=== PATIENT | male | born 1940 | race Asian ===

== ENCOUNTER 2023-02-14 09:30 | Outpatient (RCR) | payer OTHER, SELFPAY ==
[2023-02-14] MEDS: NSS 500 IV (10:05)
[2023-02-14 10:21] VITALS: BP 119/63
== END 2023-03-09 23:59 | disposition home or self-care (01) ==
LOC: OID 09:30
PROVIDERS: ATTENDING PHYSICIAN Nurse Practitioner Adult Health; FAMILY PHYSICIAN Internal Medicine
DX: I35.0 Nonrheumatic aortic (valve) stenosis (principal); I25.10 Atherosclerotic heart disease of native coronary artery without angina pectoris; Z92.89 Personal history of other medical treatment
CPT/HCPCS: 74174; 96360; 96361; Q9967

== ENCOUNTER 2023-03-17 07:19 | Inpatient (IN) | payer OTHER, SELFPAY ==
--- NOTE | 2023-03-09 07:25 | HPS.HSE ---
Addendum entered and electronically signed by EDEL Alvarado 03/14/23 11:30:
Labs reviewed with Dr. Chavez. Leydaeint on Eliquis for history of a-fib. Will resume Eliquis following TAVR at renal dose.
Original Note:
Family Physician
-
Family Physician: Jennifer Ingram
Cardiology: Drew Chicas
Chief Complaint
-
6 month history of worsening shortness of breath/dyspnea on exertion
History of Present Illness
Mr. Mariana Bourne is a very pleasant 82-year-old gentleman who only speaks Gujarati. At initial consult with CT surgery, the patient reported approximately 6-month history of worsening shortness of breath/dyspnea on exertion. He stated that this
occurs with even minimal activity at present. He had not had any symptoms occurring at rest. He also reported weekly episodes of chest pain that last approximately 30 to 45 minutes and resolved spontaneously that had been occurring over the previous
3 to 4 months. He also had significant orthopedic complaints including back pain and bilateral elbow/shoulder pain and bilateral knee pain that limit his physical activity.He has severe aortic stenosis with a mean gradient of 41 mmHg along with mild
to moderate aortic valve regurgitation. His aortic valve leaflets are calcified and restricted. His LVEF is preserved at 60% and his wall motion appears normal although. His right ventricular systolic function is also normal. He also has mild mitral
regurgitation. He is status post prior PCI and stenting to his right coronary in [place] in 2012. His recent cardiac catheterization he demonstrated multi vessel CAD: Significant restenosis of the mid RCA stent. Significant mid LAD lesion.�Moderate
ostial D1 lesion.�Severe proximal OM2 lesion. Patient was reviewed by the heart team in the shared decision making meeting. He was felt to be a poor surgical candidate so the recommendation was for PCI and TAVR. On 01/20/2023 he underwent PCI with
Dr. Chicas. Since his PCI he offers no more complaints of chest pain, only HALLMAN. Also of note, his TAVR evaluation was delayed given renal insufficiency with fluctuating GFRs requiring IV hydration and staged CT scan. Completed CT scan was reviewed
by the heart team and the decision was made to place a 23mm S3 valve via left transfemoral access.
Medical History
Past Medical History
Past Medical History: Reports CAD (h/o [place], PCI 01/27/2023), CHF (Chronic Diastolic Heart Failure), GERD, HTN, Hypercholesterolemia, Valvular Disease (Aortic stenosis, MR, TR ) and Other (Pulmonary HTN)
Additional Past Medical History:
DJD
STILL[place]- no hearing aides
Past Surgical History: Reports Cardiac (Cath PCI� 01/20/2023: Mid RCA in-stent restenosis was treated with angioplasty and subsequent stenting with a 2.5 x 33 mm Xience [place] stent.� Post dilations were performed using a 2.75 mm NC balloon.� The
OM 2 lesion was stented using a 2.5 x 12 mm Xience [place] stent and postdilated using a)
Additional Past Surgical History:
Prostatectomy
Cataract surgery with lens implants
Cardiac stents in [place] 2012
Social History
Tobacco: Former Smoker
Alcohol: None
Drug: None
Personal:
Living: With Family
Employment: Retired
Family History
Family History: CAD (Father- at 60, Brother-CAD) and Diabetes (brother, sons)
Allergies / Home Medications
Allergies reflects when Allergies were last updated in [facility].
Home Medications with original date entered in [facility]
Allergy/Medication List:
Allergies:
NKDA
Medications:
Albuterol Sulfate 108 (90 Base) MCG/ACT Aerosol Powder Breath Activated 2 puff as needed Inhalation every 4 hrs.�������
Amlodipine Besylate 5 MG Tablet 1 tablet Orally Once a day.�������
Aspirin 81 81 MG Tablet Delayed Release 1 tablet Orally Once a Day.�������
Atorvastatin Calcium 10 MG Tablet take 1 tablet by oral route every day Oral.�������
Clopidogrel Bisulfate 75 MG Tablet 1 tablet Orally Once a Day.�������
Eliquis(Apixaban) 5 MG Tablet 1 tablet Orally Twice a day.�������
Furosemide 20 MG Tablet 1 tablet Orally Once a day.�������
Metoprolol Succinate ER 25 MG Tablet take 1 tablet by oral route every day Oral.�������
Nitroglycerin 0.4 MG Tablet Sublingual as directed Sublingual PRN.�������
Pantoprazole Sodium 40 MG Tablet Delayed Release 1 tablet Orally Once a day.
Review of Systems
-
Unable to obtain full review of systems at this time due to: Language Barrier
History Source: Family (son)
Constitutional: Reports No Symptoms and Fever
EENT: Reports No Symptoms
Respiratory: Reports No Symptoms
Cardiac: Reports Other (Dyspnea on Exertion)
Abdomen/GI: Reports No Symptoms
: Reports No Symptoms
Musculoskeletal: Reports No Symptoms
Skin: Reports No Symptoms
Neurological: Reports No Symptoms
Endocrine: Reports No Symptoms
Hematologic/Lymphatic: Reports Bleeding (occasional epistaxis)
Psych: Reports No Symptoms
Physical Exam
Physical Exam
General: No Apparent Distress and Comfortable
HEENT: NormoCephalic and Moist mucous membranes
Respiratory: Clear and Non Labored Respirations
Cardiac: Irregular Rhythm and Murmur (III/)
Breast: Deferred by me
GI: Soft, Non Tender, Non Distended and Normal Bowel Sounds
Rectal: Deferred by Provider
Genito-urinary: Deferred by me
Musculoskeletal: No Edema
Skin: Warm and Dry
Neuro: AO x 3 (per son, speaks Zandrati)
Psych: Calm
Data Reviewed
-
Diagnostic Radiology: Report Reviewed by me (Emphysematous changes and probable lingular subsegmental atelectasis. Moderate cardiomegaly.)
Medical Tests (Nuc Med, Echo, EKG etc): Report Reviewed by me (a-fib, rate 73)
Lab Data: Discussed with Physician (H/H: 10.0/31.5. Only one previous CBC found from [facility] on 03/01 and Hgb was 11. Dr. Chavez aware. BUN/CREAT: 33/2.1, GFR: 30.66. This is not very different from patient baseline. Creat on 03/[address] [facility] [address] Chavez aware-will proceed with TAVR and monitor closely in hospital.)
Impression/Plan
-
IMPRESSION: 1. Severe symptomatic aortic stenosis with known CAD recently treated with coronary stenting by Dr. Chicas.
2.Altered kidney function. Unclear if chronic or acute given relatively recent involvement with patient.
3. Anemia- Hgb 10.0. Only one previous CBC found and HGB was 11.0 on 03/01/2023. No evidence of acute bleeding.
PLAN:
1. Severe Aortic Stenosis
-Plan TF-TAVR with 23mm S3 valve. Risks of PPM, bleeding and stroke reviewed with son. Allowed for and answered questions.
-Arrive 03/17/2023 at 0730 to [facility]. Aware they will receive a call on 03/16 to confirm arrival time and review instructions.
-Hold Eliquis 5mg BID after evening dose on 03/13. Take Aspirin 324mg on 03/14, Aspirin 81mg on 03/15, 03/16 and 03/17.
-Continue Plavix 75mg daily. Do not stop prior to procedure.
-hold other daily medications on , 03/17.
2. Altered Kidney function
- trend BUN/Creat/GFR
- hold lasix on 03/16 and 03/17
- limit contrast for procedure if possible
- may consider nephrology consult
3. Anemia
-trend CBC
-follow up with primary care physician for complete anemia work up following TAVR
[2023-03-09 08:40] VITALS: BMI 24.0
[2023-03-09 09:36] LABS: % Basophils 0.8 % (0-2); % Eosinophils 2.2 % (0-6); % Immature Granulocytes 0.3 % (0-0.5); % Lymphocytes 19.7 % (20.5-51.1); % Monocytes 10.4 % (1.7-9.3); % Neutrophils 66.6 % (42.2-75.2); Absolute Basophils 0.1 10^3/uL (0-0.2); Absolute Eosinophils 0.1 10^3/uL (0-0.7); Absolute Lymphocytes 1.3 10^3/uL (1.2-3.4); Absolute Monocytes 0.7 10^3/uL (0.1-0.6); Absolute Neutrophils 4.3 10^3/uL (1.4-6.5); Hematocrit 31.5 % (39.0-52.0); Mean Corp Hgb Conc. 31.7 g/dL (33.0-37.0); Mean Corpuscular Hgb 23.6 pg (27.0-31.0); Mean Corpuscular Volume 74.3 fL (80.0-94.0); Mean Platelet Volume 10.5 fL (7.4-10.4); Nucleated Red Blood Cells % 0 % (-); Platelet Count 204 10^3/uL (130-400); Red Blood Cell Count 4.24 10^6/uL (4.70-6.10); Red Cell Dist. Width 15.5 % (11.5-14.5); White Blood Cell Count 6.5 10^3/uL (4.8-10.8)
[2023-03-09 09:39] LABS: INR 1.36; PT 16.9 Sec (11.4-14.6)
[2023-03-09 09:40] LABS: APTT 40.3 Sec (23.4-35.0)
[2023-03-09 09:53] LABS: NT-proBNP 3680 pg/ml
--- NOTE | 2023-03-09 10:54 | CM ---
CM met w/ patient, son Emory during PATs for planned TAVR, 03/17.
Son provided translation as patient speaks Gujarti.
Pt. resides w/ spouse, son and dtr. in law in a private 2 story home. There are 1 LU the home. Patient is indep. w/ use of a SPC or RW.
Patient has Rx plan and uses [id number].
Reviewed pre and post op routines.
Soap, shower instructions and TAVR booklet provided and reviewed.
Discussed post op restrictions to include lifting, driving restrictions.
Reviewed post op appointment timeframe, Cardiac Rehab and visit from CT Transitional Care RN; patient agreeable to this.
Plan is for TAVR on 03/17.
Anticipated DC plan is for home w/ CT Transitional Care RN.
Will follow.
[2023-03-09 11:28] LABS: ALT (SGPT) 16 U/L (0-50); AST (SGOT) 19 U/L (17-59); Albumin 4.6 g/dl (3.5-5.0); Alkaline Phosphatase 103 U/L (38-126); Blood Urea Nitrogen 33 mg/dl (9-20); Calcium 9.5 mg/dl (8.4-10.2); Carbon Dioxide 25 mmol/L (22-30); Chloride 104 mmol/L (98-107); Direct Bilirubin 0.6 mg/dl (0.0-0.4); Estimated Creatinine Clearance 21 ml/min; Glucose 85 mg/dl (70-99); Potassium 4.8 mmol/L (3.5-5.1); Sodium 138 mmol/L (135-145); Total Bilirubin 0.8 mg/dl (0.2-1.3); Total Protein 7.9 g/dl (6.3-8.2); eGFR 30.66
[2023-03-17] VITALS (21 sets, daily range): BP systolic 96–135; BP diastolic 51–69; BMI 24.3
--- NOTE | 2023-03-17 07:58 | CM ---
Reviewed chart. Mrs. Bourne is in the operating room today.Prior to admission she resides with her spouse, son and [id number] in a two story home with one step to enter. Prior to admission she was independent with adls and uses a rolling walker
or single point cane for ambulation. She has a rolling walker and single point cane at home. She has a prescription plan and uses [facility]. Medical work-up in progress. The discharge plan is to return home with her spouse,son and
[id number] with a home visit by the Cardiothoracic Transitional Care Nurse when medically stable.
--- NOTE | 2023-03-17 08:55 | W.CVOR.SURPR ---
CVOR Surgeon Immed Pre Op
-
I have examined this patient prior to performance of the scheduled procedure.
The patient's condition is unchanged from the time of the dictated/written History and
Physical and the patient is able to undergo the scheduled procedure.
I obtained consent w/ the aid of an chick sexer. We reviewed the procedure and the associated risks (including, but not limited to, , stroke, TX, PPM requirement, PNA, LUIS FERNANDO/F, infection, and bleeding/vascular injury). Pt. is agreeable to
proceed. Pt's son was present during our discussions. The patient would request surgical rescue if necessary and deemed appropriate.
--- NOTE | 2023-03-17 09:04 | CM ---
Reviewed chart. Mr. Bourne is in the operating room today. Prior to admission he resides with his spouse, son and daughter -in-law in a two story home with one step to enter. Prior to admission he was independent with adls and uses a rolling walker
or single point cane to ambulate. He has a rolling walker and single point cane at home. He has a prescription plan and uses [facility]. Medical work-up in progress. The discharge plan is to return home with his spouse, son and
[id number] with a home visit by the Cardiothoracic Transitional Care Nurse when medically stable.
[2023-03-17] MEDS: STERILE WATER FOR INJECTION 16 ML IV ×2 (09:30→17:25)
[2023-03-17] MEDS: ZINACEF 1500 MG IV (09:30)
[2023-03-17 10:18] LABS: ACT-LR - POC 380 Seconds (116-155)
--- NOTE | 2023-03-17 10:25 | W.IMMPOSTOP ---
Surgical Immed Post Op Note
-
Dictated: [id number]
STRUCTURAL HEART PROCEDURE NOTE: TAVR
Preoperative Dx:
Severe aortic stenosis (P/M: 72/41, [id number] AI)
CAD s/p OK, s/p PCI/JAVON
Chronic diastolic heart failure
CKD (creat 2.1)
HTN/HLD
PAD
PAH
DJD
GERD
PAF
Postoperative Dx:
Same
Procedures:
1) R DIRECTOR OF PLACEMENT access w/ tactile and fluoroscopic guidance, micropuncture technique, 6Fr sheath placement
2) R CFV access w/ fluoroscopic guidance, micropuncture technique, 6Fr sheath placement
3) Placement of temporary RV pacing wire w/ threshold testing
4) Placement of pigtail catheter in RCC, limited aortography w/ confirmation of co-planar valve deployment angles
5) L DIRECTOR OF PLACEMENT access w/ tactile and fluoroscopic guidance, micropuncture technique, 6Fr sheath placement, limited angiography
6) Placement of perclose sutures x 2 into L DIRECTOR OF PLACEMENT, 8Fr sheath placement (partial heparinization)
7) Serial dilation of L ileofemoral system, placement of Mascorro E-sheath (full heparinization)
8) Wire purchase across stenotic AV; LV hemodynamic assessment
9) L TF TAVR w/ placement of 23mm JOES 3 valve
10) Completion TTE (no AI, mean gradient 7mmHg)
11) Removal of valve delivery system & Mascorro E-sheath w/ L DIRECTOR OF PLACEMENT mgmt w/ perclose sutures x 2; completion angiography; manual pressure
12) Removal of temporary pacing wire
13) Removal of R 6Fr DIRECTOR OF PLACEMENT sheath w/ mgmt w/ 6Fr angioseal and manual pressure (protamine)
14) Removal of R 6Fr CFV sheath w/ mgmt w/ manual pressure
Electronics Technician:
Dr. Darryn Chavez
Cardiac Surgeon:
Dr. Jeffrey Walter
Anesthesia:
MAC & local to B/L groins
Cath Data:
Start: 0934hrs, Deploy: 1008hrs, End: 1022hrs
FT: 11.2min, mGy: 250.22, DAP: 36.1728, Contrast: 43mL
LVEDP: 22mmHg
Post-TTE: No AI, mean gradient 7mmHg
Implants:
Mascorro Lifesciences, Model [id number], 23mm, SN [id number]
Perclose x 2
6Fr angioseal x 1
Complications:
Minor hemodynamic instability immediately following pacing run/TAVR vavle deployment responsive to pharmacologic resuscitation w/ brief gentle CPR to circulate medications
Condition:
Stable/guarded to recovery
--- NOTE | 2023-03-17 10:34 | ITS.CL.TAVR ---
Pantograph Ii Engraver - TAVR Report
TAVR PRocedure
Procedure Report:
TRANSCATHETER AORTIC VALVE REPLACEMENT REPORT
Date: 03/17/2023
Referring physician: Drew Chicas MD
Operators:
commercial producer: Carlos Chavez MD
Cardiac surgeon: Jeffrey Walter MD
Procedure:
Conscious sedation was provided by anesthesia. Using a micropuncture technique, 6F sheaths were placed in the RFA and RFV. A transvenous pacemaker was advanced to the RV and excellent thresholds obtained. A pigtail catheter was advanced to the
aortic root where low volume injections were performed to identify an appropriate angle for valve deployment. Access was then obtained in the left femoral artery using a micropuncture technique. A 6Fsheath was placed and angiography confirmed a HEEL SPRAYER
puncture site. Heparin 3000 units was administered. Two perclose sutures were preset using the preclose technique. An 8F sheath was placed in the LFA and an Amplatz extra stiff wire advanced into the thoracic aorta. The ileofemoral vessels were
dilated using the Mascorro dilator. An Mascorro E sheath was advanced into the descending thoracic aorta. Additional heparin 2000 units was administered. The valve was crossed using a diagnostic 6F AL1 catheter and a straight wire. An Amplatz extra
stiff wire with a homemade curve was placed in the LV apex. Balloon aortic valvuloplasty was not performed. The patient's hemodynamics recovered quickly following BAV. An Mascorro 23 mm Kiah S3 valve was then advanced through the E sheath and
prepared for transit around the aortic arch. The valve was carefully advanced across the aortic annulus and deployed during rapid ventricular pacing. Echocardiography confirmed an excellent result with mean gradient 7 mmHg no AI. The valve
deployment system was removed. The Mascorro E sheath was then removed and hemostasis obtained with the two perclose sutures. Final angiography demonstrated no evidence of ileofemoral dissection/perforation and good runoff below the common femoral
artery. The pacemaker was removed and the RFV sheath removed with manual hemostasis. The RFA sheath was removed using a 6 F angioseal.
Radiation (mGy): 250
DAP (cm2.Gy): 36.2
Fluoroscopy time: 1.2 minutes
Total contrast 43 ml Visapaque
Conclusions: Successful placement of 23 mm Kiah S3 aortic valve via left transfemoral approach with no acute complications.
Copy to: Drew Chicas MD, Jennifer Ingram MD
[2023-03-17] MEDS: TYLENOL 650 MG PO (13:17)
[2023-03-17 13:41] LABS: ACT-LR - POC > 397 Seconds (116-155)
--- NOTE | 2023-03-17 13:42 | PTCARENOTE ---
patient arrived from engineering laboratory technician at noon, monitor placed Afib with a L BBB, VSS, neuro checks being completed as per protocol. patient doesnot speak Bulgarian, son at bedside. bilat. groins, left slight bit of blood on dsg. right groin D/I, distal pulses
bilat. by doppler only. patient has some discomfort at bilat. groins, Tylenol po given as ordered. instructed son and patient on post TAVR instructions they both nodded with understanding. pneumatic sleeves placed as ordered. I/S at bedside.
--- NOTE | 2023-03-17 14:33 | PTCARENOTE ---
left groin dsg. bloody, changed and sat patient up 30 degrees as per protocol.
--- NOTE | 2023-03-17 16:15 | PTCARENOTE ---
patient sitting up to eat, left groin has small amount of blood noticed on dsg., distal pulse by Doppler only. offered patient urinal to void.
--- NOTE | 2023-03-17 17:00 | PTCARENOTE ---
patient sitting up to eat, checked both groins, left dsg. saturated, CVPA came down to look at groins, hemostasis pad applied and new dsg. soft, no hematoma. right groin D/I.
[2023-03-17] MEDS: ZINACEF 750 MG IV (17:24)
[2023-03-17] MEDS: FLUSH (NSS) 1 FLUSH IV (17:27)
--- NOTE | 2023-03-17 18:06 | PTCARENOTE ---
left groin oozing, held 10minutes of manual pressure, son at bedside, aware that his father needs to lay flat.
[2023-03-17] MEDS: NORVASC 5 MG PO (20:13)
[2023-03-18] VITALS (7 sets, daily range): BP systolic 119–151; BP diastolic 59–115; PULSE 99–100; O2SAT 96; BMI 24.3
--- NOTE | 2023-03-18 01:25 | PTCARENOTE ---
Assumed care of patient at 19:10. Patients son at bedside. Neuro WNL. Tele monitor shows Afib, HR in the 70-90's. VSS, and sating 95-97% RA. Has an occasional OVERHAULER HELPER moist cough. IS performed, pt can get up to 1,000. Pt denies any pain. B/l pedal
pulses positive w/ doppler. Right groin site intact, left groin site with old drainage from previous shift. Site marked to monitor for any further drainage. B/l groins soft upon palpation. Patient and son aware of POC, call gloria in reach.
--- NOTE | 2023-03-18 04:00 | PTCARENOTE ---
Left groin dressing changed this AM by Lucho GRIMM. Morning ekg obtained and it showed Afib w/ PVCs and left BBB. Angie GRIMM made aware.
[2023-03-18 04:20] LABS: Hematocrit 30.9 % (39.0-52.0); Hemoglobin 9.8 g/dL (13.0-18.0); Mean Corp Hgb Conc. 31.7 g/dL (33.0-37.0); Mean Corpuscular Hgb 23.5 pg (27.0-31.0); Mean Corpuscular Volume 74.1 fL (80.0-94.0); Mean Platelet Volume 10.6 fL (7.4-10.4); Platelet Count 165 10^3/uL (130-400); Red Blood Cell Count 4.17 10^6/uL (4.70-6.10); Red Cell Dist. Width 15.9 % (11.5-14.5); White Blood Cell Count 8.5 10^3/uL (4.8-10.8)
[2023-03-18 04:43] LABS: Blood Urea Nitrogen 27 mg/dl (9-20); Calcium 9.2 mg/dl (8.4-10.2); Carbon Dioxide 22 mmol/L (22-30); Chloride 111 mmol/L (98-107); Estimated Creatinine Clearance 28 ml/min; Glucose 119 mg/dl (70-99); Magnesium 2.3 mg/dl (1.6-2.3); Potassium 4.2 mmol/L (3.5-5.1); Sodium 140 mmol/L (135-145); eGFR 42.49
--- NOTE | 2023-03-18 06:24 | W.PN.CT ---
Addendum entered and electronically signed by Jeffrey Walter MD 03/18/23 08:06:
I saw and examined the patient.
The PA's note was reviewed and I agree with the note.
Comment:
POD#1
- Reduced Eliquis to 2.5mg BID and continue plavix
- Resume home medications
- Echocardiogram today
- May requiring monitoring on D/C
- D/C planning for later today
Original Note:
Today's Communication / Plan
-
-pod #1
-no issues overnight. No further oozing from L groin (dressing changed this am, InnoSeal placed)
-new LBBB postop (appears in and out). 4-7 beat runs noted of different morphology (not LBBB)-will review tele with Cardiology.
-will hold am Toprol. Eliquis to be started this am
-in a-fib 80s-90s overnight. No fidencio or pauses
-follow Cr - 1.6 today (2.1 preop)
-Echo today
-current meds (Eliquis decreased 2.5 bid d/t CKD, Plavix, Toprol, Norvasc, Lipitor, Lasix, Protonix). ASA stopped
-encourage IS, OOB, ambulate
Assessment / Plan
-
- Severe symptomatic - s/p L TF TAVR w/ placement of 23mm JOSE 3 valve on 03/17/23, pod #1
- Minor hemodynamic instability immediately following pacing run/TAVR vavle deployment responsive to pharmacologic resuscitation w/ brief gentle CPR to circulate medications
- LVEDP: 22mmHg
- Post-TTE: No AI, mean gradient 7mmHg
- CAD s/p MS, s/p PCI/JAVON 01/21/24 (mid RCA, OM2, LAD)- on ASA, Plavix, Eliquis preop
- Hx cardiac stents 2013 in [place]
- Chronic diastolic heart failure
- Mild MR
- PAF - on Eliquis and Toprol preop
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
- HTN/HLD
- PreDM (HgA1c 6.0)
- Former smoker, quit 2012
- COPD
- PAD
- PAH
- DJD
- GERD
- Hard of hearing
- Acute postop LBBB
Discussed patient care with: Nursing and Care Team
Subjective
Procedure
- s/p L TF TAVR w/ placement of 23mm JOSE 3 valve on 03/17/23
-
Date of Service: March 18, 2023
Objective Data
-
PT 16.9 Sec (11.4-14.6) H 03/09/23 08:53
INR 1.36 03/09/23 08:53
APTT 40.3 Sec (23.4-35.0) H 03/09/23 08:53
Vital Signs
Vital Signs
Temp Pulse Resp BP Pulse Ox
98.1 F 87 18 132/69 95
03/17/23 23:43 03/17/23 23:38 03/17/23 23:43 03/17/23 23:38 03/17/23 23:43
CT Intake/Output/Weight
03/17/23 03/17/23 03/18/23
06:59 18:59 06:59
Output Total 600 / 600
Balance -600 / -600
SaO2: 95
Physical Exam
-
General: Awake and AOx3 (pt's son is at bedside, helping to translate)
Cardiovascular: Irregular rate & rhythm, No Murmurs and No Rub
Respiratory: Wheeze (occasional expiratory wheeze) and Decreased Breath Sounds (barrel chest appearance)
Incision: Other (groins are cdi, soft, nontender, no hematoma b/l)
Extremities: No Edema (hard to palpate DP and PT b/l)
Data Reviewed
-
Lab Results: Results Reviewed
Medications: Active Meds Reviewed
Chest X-Ray: Report Reviewed and Image Reviewed
ECG: Report Reviewed and Image Reviewed
--- NOTE | 2023-03-18 08:14 | W.PN.ANS.POP ---
Anesthesia Post Operative
- Anesthesia Post Op Note
Vital Signs Stable-See Nursing Note: Yes
Airway Patent: Yes
Adequate Pain Control: Yes
Change in Mental Status: No
Current Postoperative Nausea & Vomiting: No
Anesthesia Complications: No
General Anesthetic Recall: No
Unplanned Admission: No
Post Op Hydration Adequate: Yes
[2023-03-18] MEDS: LASIX 20 MG PO (09:33)
[2023-03-18] MEDS: LIPITOR 10 MG PO (09:34)
[2023-03-18] MEDS: ELIQUIS 2.5 MG PO (09:34)
[2023-03-18] MEDS: NORVASC 5 MG PO (09:34)
[2023-03-18] MEDS: TYLENOL 650 MG PO (09:34)
[2023-03-18] MEDS: PLAVIX 75 MG PO (09:34)
[2023-03-18] MEDS: FLUSH (NSS) 2 FLUSH IV (09:35)
--- NOTE | 2023-03-18 09:39 | W.DCSUMMARY ---
Documented by User: [email or web address] Cummings 03/18/23 09:54
Discharge Summary
Discharge Data
Date of Admission: 03/17/23
Date of Discharge: 03/18/23
Total time spent discharging patient (in min): 25
-
Pending Results: No
Hospital Course
Primary care physician:
Dr. Jennifer Ingram
Outpatient thiokol operator:
Dr. Chicas
Inpatient consultants:
[facility] cardiology
Procedures:
1. Left transfemoral transcatheter aortic valve replacement with placement of #23 mm JOSE 3 valve
Primary Diagnosis:
1. Severe aortic stenosis
Secondary Diagnoses:
1. Coronary artery disease status post myocardial infarction status post percutaneous cardiac intervention
2. Chronic diastolic heart failure
3. Chronic kidney disease
4. Hypertension
5. Hyperlipidemia
6. Peripheral artery disease
7. Pulmonary artery hypertension
8. Paroxysmal atrial fibrillation
HPI: 83-year-old male who presents electively for a transcatheter aortic valve replacement with Dr. Walter on 03/17/2023.
Hospital course:
Patient was electively admitted on 03/[address] Walter. He received a successful placement of a number 23 mm JOSE 3 aortic valve in the [employer]. However, briefly post valve deployment patient was hypotensive hand received gentle
compressions. He also developed a left bundle branch block and metoprolol was held. He returned to PACU and patient was transferred to IVU overnight. On 03/18 postop day #1 patient received a chest x-ray which was stable, an echocardiogram that
showed a mean gradient of . Due to his left bundle branch block patient will be discharged with a rhythm star heart monitor. Otherwise, he was deemed stable for discharge and discharge instructions were reviewed with the patient.
Home medication changes:
Stopped:
Metoprolol succinate 25mg PO daily
Aspirin 81mg PO daily
Discharge Plan
-
Patient Disposition: Home (Routine Discharge)
Discharge Diagnosis/Procedures: TF-TAVR
Condition: Good
Diet: Low Cholesterol and 2 Gram Sodium
Activity: As tolerated
Driving Restrictions: No driving for 1 week
Bathing Restrictions: OK to Shower
Others Tests: Please call Dr. Chicas's office to schedule a follow up echocardiogram for 30 days after your TAVR
Other Services: Cardiac Rehab
Wound Care: Please do not apply lotions, creams or powders to groin areas. Please monitor areas for increased redness, swelling, pain or drainage. Notify your doctor if any occur.
Specialty Instructions: Weigh Daily- Call MD for wt gain/loss 3 lbs overnight/5 lbs in 1 week
Stop these medications:: Aspirin
Referrals:
CT Transitional Care Nurse [Outside] - in one to two days
(
The Cardiothoracic Transitional Care Nurse will call you to set up a visit in 1-2 days.)
Kirby Chicas MD [Active] - 04/12/23 1:00 pm
Jennifer Ingram MD [Family Provider] - in four to six weeks (Please make an appointment in four to six weeks. )
Prescriptions:
New
metoprolol succinate 25 mg Tablet Extended Release 24 Hr
25 mg PO DAILY Qty: 30 0RF
Continued
atorvastatin 10 MG tablet
10 mg PO DAILY
furosemide 20 mg Tablet
20 mg PO DAILY
clopidogrel 75 mg Tablet
75 mg PO DAILY
amlodipine 5 mg Tablet
5 mg PO BID
Eliquis 2.5 mg Tablet
2.5 mg PO BID
Changed
pantoprazole [Protonix] 40 mg Tablet,Delayed Release (Dr/Ec)
40 mg PO DAILY Qty: 0 0RF
Discontinued
metoprolol succinate 25 MG tablet extended release 24 hr
25 mg PO DAILY
aspirin [Aspir-Low] 81 mg Tablet,Delayed Release (Dr/Ec)
81 mg PO DAILY
Discharge Orders:
Discharge Patient (As Directed); Ordered 03/18/23
Ordered By: Mily Thacker
Care Plan Goals
Care Plan Goals:
Problem: Readiness for enhanced knowledge related to diagnosis and treatment plan
Goal: Understand your diagnosis and treatment plan needs, including medications if applicable.
Instructions: Know your diagnosis, underlying causes and treatment plan options, including medications if applicable. Consult with your health care team to learn about your diagnosis and treatment plan, including medications if applicable.

Documented by User: [email or web address] Gardner 03/18/23 16:22
Discharge Summary
Discharge Data
Date of Admission: 03/17/23
Date of Discharge: 03/18/23
Hospital Course
Primary care physician:
Dr. Jennifer Ingram
Outpatient thiokol operator:
Dr. Chicas
Inpatient consultants:
[facility] cardiology
Procedures:
1. Left transfemoral transcatheter aortic valve replacement with placement of #23 mm JOSE 3 valve
Primary Diagnosis:
1. Severe aortic stenosis
Secondary Diagnoses:
1. Coronary artery disease status post myocardial infarction status post percutaneous cardiac intervention
2. Chronic diastolic heart failure
3. Chronic kidney disease
4. Hypertension
5. Hyperlipidemia
6. Peripheral artery disease
7. Pulmonary artery hypertension
8. Paroxysmal atrial fibrillation
HPI: 83-year-old male who presents electively for a transcatheter aortic valve replacement with Dr. Walter on 03/17/2023.
Hospital course:
Patient was electively admitted on 03/[address] Walter. He received a successful placement of a number 23 mm JOSE 3 aortic valve in the [employer]. However, briefly post valve deployment patient was hypotensive hand received gentle
compressions. He also developed a left bundle branch block and metoprolol was held. He returned to PACU and patient was transferred to IVU overnight. On 2 postop day #1 patient received a chest x-ray which was stable, an echocardiogram that
showed a mean gradient of 7 and no AI. Due to his left bundle branch block, patient will be discharged with a rhythm star heart monitor. Otherwise, he was deemed stable for discharge and discharge instructions were reviewed with the patient. He
will require follow up BMP in week to assess creatinine. If at that time, creatinine is <1.5, his Eliquis dose can be increased to 5mg BID as d/w Dr. Osorio.
Home medication changes:
Stopped:
Aspirin 81mg PO daily
Discharge Plan
-
Patient Disposition: Home (Routine Discharge)
Discharge Diagnosis/Procedures: TF-TAVR
Condition: Good
Diet: Low Cholesterol and 2 Gram Sodium
Activity: As tolerated
Driving Restrictions: No driving for 1 week
Bathing Restrictions: OK to Shower
Others Tests: Please call Dr. Chicas's office to schedule a follow up echocardiogram for 30 days after your TAVR
Other Services: Cardiac Rehab
Wound Care: Please do not apply lotions, creams or powders to groin areas. Please monitor areas for increased redness, swelling, pain or drainage. Notify your doctor if any occur.
Specialty Instructions: Weigh Daily- Call MD for wt gain/loss 3 lbs overnight/5 lbs in 1 week
Stop these medications:: Aspirin
Referrals:
CT Transitional Care Nurse [Outside] - in one to two days
(
The Cardiothoracic Transitional Care Nurse will call you to set up a visit in 1-2 days.)
Kirby Chicas MD [Active] - 04/12/23 1:00 pm
Jennifer Ingram MD [Family Provider] - in four to six weeks (Please make an appointment in four to six weeks. )
Prescriptions:
New
metoprolol succinate 25 mg Tablet Extended Release 24 Hr
25 mg PO DAILY Qty: 30 0RF
Continued
atorvastatin 10 MG tablet
10 mg PO DAILY
furosemide 20 mg Tablet
20 mg PO DAILY
clopidogrel 75 mg Tablet
75 mg PO DAILY
amlodipine 5 mg Tablet
5 mg PO BID
Eliquis 2.5 mg Tablet
2.5 mg PO BID
Changed
pantoprazole [Protonix] 40 mg Tablet,Delayed Release (Dr/Ec)
40 mg PO DAILY Qty: 0 0RF
Discontinued
metoprolol succinate 25 MG tablet extended release 24 hr
25 mg PO DAILY
aspirin [Aspir-Low] 81 mg Tablet,Delayed Release (Dr/Ec)
81 mg PO DAILY
Discharge Orders:
Discharge Patient (As Directed); Ordered 03/18/23
Ordered By: Mily Thacker
Care Plan Goals
Care Plan Goals:
Problem: Readiness for enhanced knowledge related to diagnosis and treatment plan
Goal: Understand your diagnosis and treatment plan needs, including medications if applicable.
Instructions: Know your diagnosis, underlying causes and treatment plan options, including medications if applicable. Consult with your health care team to learn about your diagnosis and treatment plan, including medications if applicable.
--- NOTE | 2023-03-18 09:52 | PTCARENOTE ---
Received patient this morning, son at the bedside to translate. He states the patient is AAO x 3, nonverbal communication appropriate and follows commands when asked. Bilateral groin dressings dry and intact, DP pulse by doppler. Patient complained
of chronic bilateral foot pain and medicated with tylenol as requested. Patient usually uses a cane, son instructed to have his father request assistance when getting oob, using urinal to void. Awaiting echo, plan of care explained to the patient's
son.
--- NOTE | 2023-03-18 11:27 | CM ---
CM following for DC planning needs.
Met w/ patient, son at bedside. Pt. feels well, is hopeful for DC today (per son's translation).
Reviewed DC plan for home w/ CT Transitional Care RN.
CM to cont. to follow.
--- NOTE | 2023-03-18 11:43 | PTCARENOTE ---
Patient oob with cardiac rehab, HR in the 130-140's, HALLMAN. Gait unsteady as per cardiac rehab nurse and patient has steps at home, which he is unable to tolerate ambulating down the solorzano at this time to try steps. Dr. Osorio on the floor rounding and
assessed patient, will discuss with CT surgery.
[2023-03-18] MEDS: TOPROL XL 25 MG PO (12:38)
--- NOTE | 2023-03-18 14:50 | W.PN.CD ---
Today's Communication / Plan
-
Toprol XL held in setting of new LBBB: now with RVR
resume Toprol XL and trend tele
trend Cr for eliquis dosing
Impression / Plan
-
83 yo male with PMH of severe s/p TAVR 03/17, permanent A fib on eliquis, CAD s/p PCI 01/2023 admitted following TAVR.
# New LBBB post TAVR
-Rhythm star will be placed upon discharge
# Permanent A fib
-Toprol XL held in setting of new LBBB: now with RVR
-resume Toprol XL and trend tele
-continue eliquis 2.5mg bid (age, Cr)
-trend Cr
# CAD s/p PCI 01/2023
-stable, no angina
-on Plavix and eliquis (for A fib)
Physical Exam
Vital Signs/Labs
Vital Signs
Temp Pulse Resp BP Pulse Ox
97.5 F 123 20 126/71 97
03/18/23 11:38 03/18/23 11:38 03/18/23 11:38 03/18/23 11:27 03/18/23 06:45
03/17/23 03/18/23 03/19/23
06:59 06:59 06:59
Actual Weight 62.2 kg
03/18/23 03:52
03/18/23 03:52
PT 16.9 Sec (11.4-14.6) H 03/09/23 08:53
INR 1.36 03/09/23 08:53
APTT 40.3 Sec (23.4-35.0) H 03/09/23 08:53
Magnesium Cancelled 03/18/23 06:00
03/09/23
08:53
[id number] Pept 3680
Physical Exam
Constitutional: No acute distress and Comfortable
EENT: Moist mucous membranes
Cardiovascular: Pedal edema is absent, JVD pressure is normal, Rhythm/rate is irregular and Systolic murmur present
Respiratory: Respiratory effort normal and Lungs clear to auscul.
GI: Soft, Distention absent and Flat
Neuro/Psych: Alert
Data Reviewed
-
Date of Service: March 18, 2023
EKG: Other (tele: A fib with RVR with activity)
Labs: Labs Reviewed by me
Old Records: Reviewed
--- NOTE | 2023-03-18 15:14 | PTCARENOTE ---
Patient resting in bed, remains in AF, HR 80's-90's after receiving PO toprol. Patient's son went home to shower and is now back in the room. Notified PT re: PT evaluation for discharge planning and will notify therapist to come see the patient.
--- NOTE | 2023-03-18 16:53 | PTCARENOTE ---
Patient seen by PT, wheeled to stairway and did steps with SPC. Patient cleared for discharge home with son as per PT. Notified CT surgery who spoke with cardiology and patient ok for discharge.
--- NOTE | 2023-03-18 17:05 | PTCARENOTE ---
Reviewed discharge instructions with the patient's son and he states his understanding. Home phototypesetting equipment monitor applied by CT surgery EGG PROCESSOR. Patient discharged home with his son.
== END 2023-03-18 17:16 | disposition home or self-care (01) | DRG 267 ==
LOC: IVU 07:19
PROVIDERS: Physician Assistant Surgical; ADMITTING PHYSICIAN Thoracic Surgery (Cardiothoracic Vascular Surgery); FAMILY PHYSICIAN Internal Medicine; OTHER PHYSICIAN Internal Medicine Cardiovascular Disease
PROC: 02RF38Z Replacement of Aortic Valve with Zooplastic Tissue, Percutaneous Approach (ICD-10-PCS; 2023-03-17)
PROC: 5A12012 Performance of Cardiac Output, Single, Manual (ICD-10-PCS; 2023-03-17)
DX: I08.3 Combined rheumatic disorders of mitral, aortic and tricuspid valves (principal); I13.0 Hypertensive heart and chronic kidney disease with heart failure and stage 1 through stage 4 chronic kidney disease, or unspecified chronic kidney disease; I50.32 Chronic diastolic (congestive) heart failure; I48.21 Permanent atrial fibrillation; I25.10 Atherosclerotic heart disease of native coronary artery without angina pectoris; E78.00 Pure hypercholesterolemia, unspecified; I95.89 Other hypotension; I44.7 Left bundle-branch block, unspecified; I73.9 Peripheral vascular disease, unspecified; K21.9 Gastro-esophageal reflux disease without esophagitis; N18.32 Chronic kidney disease, stage 3b; M19.90 Unspecified osteoarthritis, unspecified site; D63.1 Anemia in chronic kidney disease; I27.21 Secondary pulmonary arterial hypertension; R73.03 Prediabetes; J44.9 Chronic obstructive pulmonary disease, unspecified; H91.90 Unspecified hearing loss, unspecified ear; I25.2 Old myocardial infarction; Z95.5 Presence of coronary angioplasty implant and graft; Z79.01 Long term (current) use of anticoagulants; Z87.891 Personal history of nicotine dependence; Z79.02 Long term (current) use of antithrombotics/antiplatelets; Z79.82 Long term (current) use of aspirin
CPT/HCPCS: 93308; 33361; 36415; 71045; 71046; 80048; 80053; 82248; 83036; 83735; 83880; 85025; 85027; 85347; 85610; 85730; 86850; 86900; 86901; 86920; 87070; 93005; 93306; 93321; 93325; 97162; C1760; C1769; C1894; Q9967